=== PATIENT | male | born 1950 | race Caucasian/White ===

== ENCOUNTER 2019-07-27 08:02 | Observation (INO) | payer OTHER ==
[2019-07-27] MEDS ORDERED: MIDAZOLAM HCL 2 MG/2 ML VIAL ONE (08:48)
[2019-07-27] MEDS ORDERED: ePHEDrine SULFATE 50 MG/1 ML IVP ONE (08:48)
[2019-07-27] MEDS ORDERED: LACTATED RINGERS 1,000 ML IV.SOLN IV ONE (08:48)
[2019-07-27] MEDS ORDERED: HYDROmorphone HCL/PF 1 MG/ML VIAL ONE (15:57)
[2019-07-27 16:33] VITALS: BMI 25.9
--- NOTE | 2019-07-27 17:40 | History and Physical Report ---
History of Present Illnes - History of Present Illness Reason for Visit: Chronic neck pain, s/p ACDF C3-4, C4-5 History of Present Illness: This is a 68 year old male who presented to Dr. Marina's office with c/o chronic intractable neck pain which failed to respond to conservative treatment. He was taken to the OR today by Dr. Marnia and had anterior cervical discectomy and fusion of C3-4 and C4-5. His records indicate no complication in surgery. He is doing well postoperatively on the floor. - Past Medical History Cardiac: HTN Pulmonary: COPD Musculoskeletal: Other (Restless legs) - Past Surgical History Past Surgical History: Other (left shoulder reconstruction 2001) - Past Social History Smoke: No Alcohol: Rare (3 drinks per day) Drugs: None Lives: With Family Domestic Violence: Negative - Health Maintenance Health Maintenance: Cholesterol Influenza Vaccine: Current for this Influenza Season Pneumonia Vaccine: Yes Resuscitation Status: Resusciation Status Resuscitation Status Full Code - Unable to Obtain History Unable to Obtain: No Review of Systems - Review of Systems Constitutional: negative: Fever Eyes: negative: pain ENT: negative: Ear Pain, Ear Discharge Respiratory: Other (hoarse). negative: Cough Cardiovascular: negative: Chest Pain, Palpitations Gastrointestinal: negative: Nausea, Vomiting Genitourinary: negative: Dysuria Musculoskeletal: Neck Pain Skin: negative: Rash Neurological: negative: Weakness, Confusion Exam - Exam Vital Signs: Vital Signs (72 hours) 07/27/19 07/27/19 07/27/19 16:23 16:25 16:50 Temperature 97.9 F 97.9 F 97.6 F Pulse Rate [ 77 87 77 Left Pulse ox] Respiratory 18 18 18 Rate Blood Pressure 144/85 144/85 128/75 [Right Arm] O2 Sat by Pulse 94 94 93 Oximetry General: Alert, Oriented to Person, Oriented to Place, Oriented to Time, Cooperative HEENT: Atraumatic, PERRLA, EOMI Neck: Other (Incision looks dry, dressing in place). No: Stridor, Rigidity Lungs: Clear to auscultation Cardiovascular: Regular rate. No: Atrial Fib Murmur: No: Systolic Murmur Abdomen: Normal bowel sounds, Soft, No tenderness Genitourinary: No: Right Inguinal Hernia, Left Inguinal Hernia Male Genitourinary: No: Other Female Genitourinary: No: Other Integumentary: Normal, [place], Warm, Dry Extremities: No clubbing, No cyanosis Neurological: Normal gait, Normal speech Psych/Mental Status: Mental status NL Assessment/Plan - Assessment/Plan (1) Chronic neck pain Status: Acute Current Visit: Yes Assessment: S/P ACDF C3-4, C4-5 Plan: Ambulate, pain medications (2) Essential hypertension Status: Acute Current Visit: Yes Assessment: Will controlled (3) RLS (restless legs syndrome) Status: Acute Current Visit: Yes Assessment: Continue gabapentin VTE Assessment - RISK FACTOR SCORE VTE RISK FACTOR SCORES: AGE OVER 60 YEARS - RISK VTE MODERATE RISK: SCORE OF 2 (RISK PROXIMAL DVT 2-4%) PROPHYAXIS NEEDED (On Lovenox)
[2019-07-27] MEDS ORDERED: diphenhydrAMINE HCL 25 MG TABLET PO PRN (18:05)
[2019-07-27] MEDS ORDERED: ALBUTEROL 90MCG/PUFF INHALER IH PRN (18:05)
[2019-07-27] MEDS ORDERED: TIZANIDINE HCL 4 MG TABLET PO PRN (18:05)
[2019-07-27] MEDS: HYDROcodone /APAP 5/325 1 EACH TABLET PO PRN (20:43)
[2019-07-28] MEDS: HYDROcodone /APAP 5/325 1 EACH TABLET PO PRN (04:21)
[2019-07-28 07:04] LABS: eGFR (Non-African) > 60
[2019-07-28 07:07] LABS: BASOPHILS % 0.4 % (0.0-1.5); NEUTROPHILS # 8.1 # k/uL (1.4-7.7)
[2019-07-28] MEDS ORDERED: LISINOPRIL 20 MG TABLET PO ONE ×2 (07:55→08:31)
[2019-07-28] MEDS ORDERED: ASPIRIN EC 81 MG TABLET.DR PO ONE (07:55)
[2019-07-28 08:45] VITALS: BP 154/79
[2019-07-28] MEDS ORDERED: ASPIRIN 81 MG CHEW TAB PO SCH (09:00)
[2019-07-28] MEDS ORDERED: ENOXAPARIN SODIUM 30 MG/0.3 ML DISP.SYRIN SQ SCH (09:00)
[2019-07-28] MEDS ORDERED: LISINOPRIL 10 MG TABLET PO SCH (09:00)
--- NOTE | 2019-07-28 10:12 | Discharge Summary ---
Discharge Summary - Discharge [place] Admission Date: 07/27/19 Discharge Date: 07/28/19 Discharge To: Home History of Present Illness: 68 year old with chronic neck pain that was not responsive to conservative treatment. He was seen by Dr. Marina, and felt to be a candidate for ACDF at C3-4C4-5 and this was performed on the day of admission. Condition at Discharge: Stable Consultations this Visit: Other (Hospitalist service, therapy) Procedures this Visit: Other (ACDF C3-4/C4-5) Patient Problems: Current Active Problems Problem Status Onset Chronic neck pain Acute Essential hypertension Acute RLS (restless legs syndrome) Acute Discharge Summary: He is discharged to home Resume all previous medications Follow up with Dr Marina as scheduled. Hospital Course: He had no complications in surgery, and was able to ambulate the day of surgery without any difficulty.
== END 2019-07-28 11:35 | disposition home or self-care (01) ==
LOC: OPSURG 08:02 → SOUTH 16:20
PROVIDERS: ADMIT Family Medicine; ATTEND Family Medicine
DX: G89.29 Other chronic pain (principal); M54.2 Cervicalgia; I10 Essential (primary) hypertension; G25.81 Restless legs syndrome
CPT/HCPCS: 80053; 85025; 96374; 96375; 99218; 99282; 99284; C1762; J1170; J1650; J2250; A9270-GY; G0378; J7030; J7120; Q0163